=== PATIENT | female | born 1965 | race Caucasian/White ===

== ENCOUNTER 2020-08-25 02:14 | Emergency (ER) | payer OTHER, MEDICAID ==
[~2020-08-25] VITALS: Ht 167.6 cm; Wt 66.7 kg
--- NOTE | 2020-08-25 02:28 | NUR ---
Patient to ER bed 6 to gown for evaluation. Side rails up. Report given to DANA Beckford.
[2020-08-25 02:31] VITALS: BP_SYST 126
[2020-08-25] MEDS ORDERED: PROP10TA10 PO (02:41)
[2020-08-25] MEDS ORDERED: SYN50 PO (02:41)
[2020-08-25] MEDS ORDERED: GABA-529 PO (02:41)
--- NOTE | 2020-08-25 02:42 | NUR ---
Medication reconciliation completed with information provided by patient. Any prior medication reconciliation on file was reviewed and corrected.
--- NOTE | 2020-08-25 02:42 | NUR ---
Dr. Candelario bedside for pt eval
[2020-08-25] MEDS ORDERED: NACL 0.9% 1,000 ML IV ONE ×2 (02:45→04:30)
[2020-08-25] MEDS ORDERED: ONDANSETRON HCL 4 MG/2 ML VIAL IVP ONE (02:45)
[2020-08-25] MEDS ORDERED: KETOROLAC TROMETHAMINE 30 MG VIAL IVP ONE (02:45)
[2020-08-25 02:46] LABS: BILIRUBIN,URINE NEGATIVE (NEGATIVE); BLOOD, URINE 3+ (NEGATIVE); CLARITY/URINE CLEAR (CLEAR); COLOR,URINE YELLOW (YELLOW); GLUCOSE,URINE NEGATIVE (NEGATIVE); KETONES,URINE NEGATIVE (NEGATIVE); LEUKOCYTE ESTERASE ,URINE TRACE (NEGATIVE); NITRITE, URINE POSITIVE (NEGATIVE); PROTEIN URINE 2+ (NEGATIVE)
--- NOTE | 2020-08-25 02:51 | NUR ---
Pt BIB family to ED C/O Left flank pain x 2 weeks, no significant hx otherwise, no other complaints noted VSS no s/s of acute distress Resting on gurney rails up
[2020-08-25 02:52] LABS: BACTERIA,URINE MODERATE /HPF (None Seen)
--- NOTE | 2020-08-25 03:08 | NUR ---
Pt taken to Radiology in stable condition
[2020-08-25 03:09] LABS: BASOPHILS # (AUTO) 0.1 K/uL (0.0-0.2); BASOPHILS % (AUTO) 1.4 % (0.0-2.0); EOSINOPHILS # (AUTO) 0.1 K/uL (0.0-0.4); EOSINOPHILS % (AUTO) 1.3 % (0.0-4.0); HEMATOCRIT 39.9 % (36-48); LYMPHOCYTES # (AUTO) 1.6 K/uL (1.0-5.5); LYMPHOCYTES % (AUTO) 27.2 % (20.5-51.5); MEAN CORPUSCULAR HEMOGLOBIN 29 pg (27-31); MEAN CORPUSCULAR HGB CONC 32 % (32-36); MEAN CORPUSCULAR VOLUME 90 fL (79.0-98.0); MONOCYTES # (AUTO) 0.5 K/uL (0.0-1.0); MONOCYTES % (AUTO) 8.4 % (1.7-9.3); NEUTROPHILS # (AUTO) 3.6 K/uL (1.8-7.7); NEUTROPHILS % (AUTO) 61.7 % (40.0-70.0); PLATELET COUNT (AUTO) 201 K/uL (130-430); RED BLOOD CELL COUNT(AUTO) 4.44 MIL/uL (4.2-6.2); RED CELL DISTRIBUTION WIDTH 17.7 % (9.0-15.0); WHITE BLOOD COUNT (AUTO) 5.8 K/uL (4.8-10.8)
[2020-08-25 03:18] LABS: CALCIUM 8.4 mg/dL (8.4-11.0); CREATININE 0.72 mg/dL (0.55-1.30)
--- NOTE | 2020-08-25 03:22 | NUR ---
Pt back from Radiology, well tolerated
[2020-08-25 03:24] LABS: ALBUMIN 3.6 g/dL (3.4-4.8); TOTAL BILIRUBIN 0.3 mg/dL (0.0-1.0)
[2020-08-25] MEDS ORDERED: cefTRIAXone 1 GM in D5W 50 ML IV ONE (03:30)
--- NOTE | 2020-08-25 03:45 | NUR ---
Dr. Candelario bedside for pt update
[2020-08-25] MEDS ORDERED: cefTRIAXone 1 GM IVPB PREMIX 50 ML IV ONE (03:54)
--- NOTE | 2020-08-25 04:05 | NUR ---
IV Meds well tolerated
--- NOTE | 2020-08-25 04:45 | NUR ---
Pt states " feeling a little better "
[2020-08-25] MEDS ORDERED: Cefdinir PO (04:51)
[2020-08-25] MEDS ORDERED: HYDR-3917 PO (04:51)
--- NOTE | 2020-08-25 05:47 | NUR ---
VSS, IVF therapy well tolerated
[2020-08-25 06:30] VITALS: BP_SYST 126
--- NOTE | 2020-08-25 06:30 | NUR ---
Patient given written and verbal discharge instructions and verbalizes understanding. ER MD discussed with patient the results and treatment provided. Patient in stable condition. ID arm band removed. IV catheter removed intact and dressing applied, no active bleeding. Rx of [place] given. Patient educated on pain management and to follow up with PMD. Pain Scale 0/10 Opportunity for questions provided and answered. Medication side effect fact sheet provided.
== END 2020-08-25 06:30 | disposition home or self-care (01) ==
LOC: SED 02:14
DX: N12 Tubulo-interstitial nephritis, not specified as acute or chronic (principal); N39.0 Urinary tract infection, site not specified; Z79.899 Other long term (current) drug therapy
CPT/HCPCS: 36415; 74176; 76376; 80053; 81000; 83605; 85025; 87040; 87086; 96361; 96365; 96375; 99284; J0696; J1885; J2405; J7030

== ENCOUNTER 2022-01-06 22:00 | Emergency (ER) | payer OTHER, MEDICAID ==
[~2022-01-06] VITALS: Ht 167.6 cm; Wt 59.0 kg
[~2022-01-06 22:00] MED LIST: Cefdinir PO; GABA-529 PO; HYDR-3917 PO; PROP10TA10 PO; SYN50 PO
[2022-01-06 22:18] VITALS: BP_SYST 115
[2022-01-06] MEDS ORDERED: PROCHLORPERAZINE EDISYLATE 10 MG/2 ML VIAL IVP ONE (22:30)
[2022-01-06] MEDS ORDERED: NACL 0.9% 1,000 ML IV ONE (22:30)
[2022-01-06] MEDS ORDERED: MORPHINE 4 MG INJ. 4 MG/ML VIAL IVP ONE (22:30)
[2022-01-06 22:49] LABS: BASOPHILS # (AUTO) 0.1 K/uL (0.0-0.2); BASOPHILS % (AUTO) 2.7 % (0.0-2.0); EOSINOPHILS % (AUTO) 0.9 % (0.0-4.0); HEMATOCRIT 32.3 % (36-48); LYMPHOCYTES # (AUTO) 2.5 K/uL (1.0-5.5); MEAN CORPUSCULAR VOLUME 87 fL (79.0-98.0); MONOCYTES # (AUTO) 0.6 K/uL (0.0-1.0); NEUTROPHILS # (AUTO) 1.5 K/uL (1.8-7.7); NEUTROPHILS % (AUTO) 31.4 % (40.0-70.0); PLATELET COUNT (AUTO) 329 K/uL (130-430); RED BLOOD CELL COUNT(AUTO) 3.71 MIL/uL (4.2-6.2); RED CELL DISTRIBUTION WIDTH 14.6 % (9.0-15.0); WHITE BLOOD COUNT (AUTO) 4.9 K/uL (4.8-10.8)
--- NOTE | 2022-01-06 22:50 | NUR ---
PT IN BED, AA&OX4. AFEBRILE. C/O 10/ ABD PAIN. PER PT, SHE JUST HAD AN EMERGENCY ABDOMINAL SURGERY 4 WKS AGO IN [place]. AMBULATORY W/ STEADY GAIT. SAFE & HAZARD FREE ENVIRONMENT PROVIDED. PT ALSO STATED THAT SHE BROKE HER R 3RD,4TH & 5TH DIGIT TOES. NO SWELLING NOTED.
--- NOTE | 2022-01-06 22:55 | NUR ---
# 20 gauge angiocath placed to RFA. Use of asceptic technique. Opsite placed over site. Blood return noted. Blood for lab drawn from site. Flushed with 10 cc of normal saline. No evidence of infiltration noted. Patient tolerated well.
[2022-01-06 23:12] LABS: CALCIUM 8.4 mg/dL (8.4-11.0); CREATININE 0.68 mg/dL (0.55-1.30)
[2022-01-06 23:17] LABS: ALBUMIN 3.2 g/dL (3.4-4.8); TOTAL BILIRUBIN 0.3 mg/dL (0.0-1.0)
--- NOTE | 2022-01-07 00:20 | NUR ---
ER Dr.D' BURNS at bedside examining patient.
--- NOTE | 2022-01-07 00:40 | NUR ---
PT SIGNED CONSENT FOR CT OF ABDOMEN W/ CONTRAST.
--- NOTE | 2022-01-07 02:42 | NUR ---
COVID-19 ANTIGEN TEST TAKEN AND SENT TO LAB AT 02:40 AM.
--- NOTE | 2022-01-07 03:22 | NUR ---
REPORT GIVEN TO ERIC BEE MGR
[2022-01-07 04:21] VITALS: BP_SYST 110
[2022-01-07] MEDS ORDERED: ONDA-8 TL (04:26)
[2022-01-07] MEDS ORDERED: TRAM50TA PO (04:26)
--- NOTE | 2022-01-07 06:01 | NUR ---
Patient given written and verbal discharge instructions and verbalizes understanding. ER MD discussed with patient the results and treatment provided. Patient in stable condition. ID arm band removed. IV catheter removed intact and dressing applied, no active bleeding. Rx of ZOFRAN & TRAMADOL given. Patient educated on pain management and to follow up with PMD. Pain Scale 0/10. Opportunity for questions provided and answered. Medication side effect fact sheet provided.
== END 2022-01-07 06:00 | disposition home or self-care (01) ==
LOC: SED 22:00
DX: R10.84 Generalized abdominal pain (principal); K56.7 Ileus, unspecified; K85.90 Acute pancreatitis without necrosis or infection, unspecified; R11.0 Nausea; Z79.899 Other long term (current) drug therapy; Z20.822 Contact with and (suspected) exposure to COVID-19
CPT/HCPCS: 99284; 96374; 96361; 96375; 87426; 80053; 83690; 85025; 36415; 74177; 73620; 76376; J0780; J2270; J7030; Q9967

== ENCOUNTER 2022-04-09 01:29 | Inpatient (IN) | payer OTHER, MEDICAID ==
[~2022-04-09] VITALS: Ht 165.1 cm; Wt 56.7 kg
[~2022-04-09 01:29] MED LIST changes: +ONDA-8 TL; +TRAM50TA PO
[2022-04-09 01:47] VITALS: BP_SYST 171
[2022-04-09] MEDS ORDERED: NACL 0.9% 1,000 ML IV ONE (02:00)
[2022-04-09] MEDS ORDERED: MORPHINE 4 MG INJ. 4 MG/ML VIAL IVP ONE (02:00)
[2022-04-09] MEDS ORDERED: ONDANSETRON HCL 4 MG/2 ML VIAL IVP ONE (02:00)
[2022-04-09 02:24] LABS: BASOPHILS # (AUTO) 0.1 K/uL (0.0-0.2); BASOPHILS % (AUTO) 0.9 % (0.0-2.0); EOSINOPHILS # (AUTO) 0.1 K/uL (0.0-0.4); EOSINOPHILS % (AUTO) 0.7 % (0.0-4.0); HEMATOCRIT 39.3 % (36-48); HEMOGLOBIN 12.8 g/dL (12.0-16.0); LYMPHOCYTES # (AUTO) 1.4 K/uL (1.0-5.5); LYMPHOCYTES % (AUTO) 20.2 % (20.5-51.5); MEAN CORPUSCULAR HEMOGLOBIN 27 pg (27-31); MEAN CORPUSCULAR HGB CONC 33 % (32-36); MEAN CORPUSCULAR VOLUME 84 fL (79.0-98.0); MONOCYTES # (AUTO) 0.7 K/uL (0.0-1.0); MONOCYTES % (AUTO) 9.9 % (1.7-9.3); NEUTROPHILS # (AUTO) 4.9 K/uL (1.8-7.7); NEUTROPHILS % (AUTO) 68.3 % (40.0-70.0); PLATELET COUNT (AUTO) 288 K/uL (130-430); RED BLOOD CELL COUNT(AUTO) 4.68 MIL/uL (4.2-6.2); WHITE BLOOD COUNT (AUTO) 7.1 K/uL (4.8-10.8)
[2022-04-09 02:37] LABS: CALCIUM 9.5 mg/dL (8.4-11.0); CREATININE 0.72 mg/dL (0.55-1.30)
[2022-04-09 02:46] LABS: ALBUMIN 3.5 g/dL (3.4-4.8); TOTAL BILIRUBIN 0.4 mg/dL (0.0-1.0)
[2022-04-09] MEDS ORDERED: D5/0.45 NS 1,000 ML IV ONE (08:00)
[2022-04-09] MEDS ORDERED: MORPHINE 2 MG/ML INJ. SYRINGE IVP PRN (09:00)
[2022-04-09] MEDS ORDERED: ONDANSETRON HCL 4 MG/2 ML VIAL IM PRN (09:00)
[2022-04-09] MEDS ORDERED: ONDANSETRON HCL 4 MG/2 ML VIAL IVP PRN ×2 (12:00→16:00)
[2022-04-09] MEDS ORDERED: LORazepam 2 MG/ML VIAL IVP PRN (12:00)
[2022-04-09 12:21] LABS: BILIRUBIN,URINE NEGATIVE (NEGATIVE); BLOOD, URINE NEGATIVE (NEGATIVE); CLARITY/URINE CLEAR (CLEAR); COLOR,URINE YELLOW (YELLOW); GLUCOSE,URINE NEGATIVE (NEGATIVE); KETONES,URINE NEGATIVE (NEGATIVE); LEUKOCYTE ESTERASE ,URINE NEGATIVE (NEGATIVE); NITRITE, URINE NEGATIVE (NEGATIVE); PROTEIN URINE NEGATIVE (NEGATIVE); UROBILINOGEN,URINE 0.2 (0.2-1.0)
[2022-04-09] MEDS: MORPHINE 2 MG/ML INJ. SYRINGE IVP PRN ×2 (12:35→20:45)
[2022-04-09] MEDS ORDERED: DESFLURANE 15 MIN GAS INH ONE (15:00)
[2022-04-09] MEDS ORDERED: ROCURONIUM BROMIDE 10 MG/ML (ZEMURON) IV ONE (15:00)
[2022-04-09] MEDS ORDERED: cefTRIAXone 2 GM VIAL IV ONE (15:00)
[2022-04-09] MEDS ORDERED: fentaNYL CITRATE 250 MCG/5 ML AMP IV ONE (15:00)
[2022-04-09] MEDS ORDERED: LR 1,000 ML IV.SOLN IV ONE (15:00)
[2022-04-09] MEDS ORDERED: NS IRRIG SOLN 1000 ML IR ONE (15:00)
[2022-04-09] MEDS ORDERED: LIDOCAINE 1% 10 MG/ML, 20 ML MDV INJ ONE (15:00)
[2022-04-09] MEDS ORDERED: PROPOFOL 200MG/ 20ML VIAL (DIPRIVAN) IV ONE (15:00)
[2022-04-09] MEDS ORDERED: cefOXitin SODIUM 2 GM/VIAL (MEFOXIN) IV ONE (15:00)
[2022-04-09] MEDS ORDERED: BUPIVACAINE LIPOSOME/PF 266 MG/20 ML VIAL INFIL ONE (15:49)
[2022-04-09] MEDS ORDERED: METOCLOPRAMIDE HCL 10 MG/2 ML VIAL IVP PRN (16:00)
[2022-04-09] MEDS ORDERED: fentaNYL CITRATE/PF 100 MCG/2 ML AMP IVP PRN ×2 (16:00)
[2022-04-09] MEDS ORDERED: PANTOPRAZOLE SODIUM 40 MG TAB PO ONE (16:30)
[2022-04-09] MEDS ORDERED: MORPHINE 4 MG INJ. 4 MG/ML VIAL IVP PRN (16:30)
[2022-04-09] MEDS ORDERED: fentaNYL CITRATE/PF 100 MCG/2 ML AMP ONE (17:09)
[2022-04-09] MEDS ORDERED: MORPHINE 4 MG INJ. 4 MG/ML VIAL ONE (17:28)
[2022-04-09] MEDS ORDERED: ACETAMINOPHEN I.V. 1000 MG 100 ML IV ONE ×2 (17:59→18:15)
[2022-04-09] MEDS ORDERED: MIDAZOLAM HCL 2 MG/2 ML VIAL (VERSED) ONE (17:59)
[2022-04-09] MEDS ORDERED: MIDAZOLAM HCL 5 MG/5 ML VIAL IVP ONE (18:15)
[2022-04-09] MEDS ORDERED: HYDROmorphone 1 MG/ML INJ. CARTRIDGE ONE (18:23)
[2022-04-09 22:30] VITALS: BP_SYST 123
[2022-04-10 00:20] VITALS: BP_SYST 125
[2022-04-10] MEDS: KCL 20 mEq in D5/0.45NS 1000mL 1,000 ML IV SCH ×4 (00:39→23:40)
[2022-04-10] MEDS: MORPHINE 2 MG/ML INJ. SYRINGE IVP PRN ×2 (00:40→08:29)
[2022-04-10 06:59] LABS: BASOPHILS % (AUTO) 0.3 % (0.0-2.0); CALCIUM 8.3 mg/dL (8.4-11.0); CREATININE 0.65 mg/dL (0.55-1.30); EOSINOPHILS % (AUTO) 0.5 % (0.0-4.0); HEMATOCRIT 39.6 % (36-48); LYMPHOCYTES # (AUTO) 0.8 K/uL (1.0-5.5); LYMPHOCYTES % (AUTO) 10.8 % (20.5-51.5); MEAN CORPUSCULAR HEMOGLOBIN 28 pg (27-31); MEAN CORPUSCULAR HGB CONC 33 % (32-36); MEAN CORPUSCULAR VOLUME 85 fL (79.0-98.0); MONOCYTES # (AUTO) 0.5 K/uL (0.0-1.0); MONOCYTES % (AUTO) 6.7 % (1.7-9.3); NEUTROPHILS # (AUTO) 6.4 K/uL (1.8-7.7); NEUTROPHILS % (AUTO) 81.7 % (40.0-70.0); PLATELET COUNT (AUTO) 241 K/uL (130-430); RED BLOOD CELL COUNT(AUTO) 4.68 MIL/uL (4.2-6.2); RED CELL DISTRIBUTION WIDTH 15.8 % (9.0-15.0); WHITE BLOOD COUNT (AUTO) 7.8 K/uL (4.8-10.8)
[2022-04-10] MEDS ORDERED: HYDROcodone/ACETAMIN 7.5-325 MG TAB PO PRN (09:00)
[2022-04-10 11:23] VITALS: BP_SYST 141
[2022-04-10] MEDS ORDERED: NALOXONE HCL 0.4 MG/ML AMP (NARCAN) IVP PRN (11:30)
[2022-04-10] MEDS ORDERED: ACETAMINOPHEN 325 MG TABLET PO PRN (11:30)
[2022-04-10] MEDS: HYDROcodone/ACETAMIN 5-325 MG TAB (NORCO/ VICODIN) PO PRN ×2 (14:04→20:53)
[2022-04-10 15:19] VITALS: BP_SYST 144
[2022-04-10 20:00] VITALS: BP_SYST 123
[2022-04-11] VITALS: BP_SYST 106
[2022-04-11] MEDS: HYDROcodone/ACETAMIN 5-325 MG TAB (NORCO/ VICODIN) PO PRN (05:17)
[2022-04-11 06:47] LABS: BASOPHILS % (AUTO) 0.6 % (0.0-2.0); EOSINOPHILS # (AUTO) 0.1 K/uL (0.0-0.4); EOSINOPHILS % (AUTO) 1.7 % (0.0-4.0); HEMATOCRIT 38.7 % (36-48); HEMOGLOBIN 12.9 g/dL (12.0-16.0); LYMPHOCYTES # (AUTO) 1.1 K/uL (1.0-5.5); LYMPHOCYTES % (AUTO) 27.7 % (20.5-51.5); MEAN CORPUSCULAR HEMOGLOBIN 28 pg (27-31); MEAN CORPUSCULAR HGB CONC 33 % (32-36); MEAN CORPUSCULAR VOLUME 85 fL (79.0-98.0); MONOCYTES # (AUTO) 0.5 K/uL (0.0-1.0); MONOCYTES % (AUTO) 11.8 % (1.7-9.3); NEUTROPHILS # (AUTO) 2.2 K/uL (1.8-7.7); NEUTROPHILS % (AUTO) 58.2 % (40.0-70.0); PLATELET COUNT (AUTO) 230 K/uL (130-430); RED BLOOD CELL COUNT(AUTO) 4.58 MIL/uL (4.2-6.2); RED CELL DISTRIBUTION WIDTH 15.8 % (9.0-15.0); WHITE BLOOD COUNT (AUTO) 3.9 K/uL (4.8-10.8)
[2022-04-11 07:53] LABS: CALCIUM 8.7 mg/dL (8.4-11.0); CREATININE 0.58 mg/dL (0.55-1.30)
[2022-04-11 08:00] VITALS: BP_SYST 102
[2022-04-11] MEDS: KCL 20 mEq in D5/0.45NS 1000mL 1,000 ML IV SCH ×2 (08:30→15:07)
[2022-04-11] MEDS ORDERED: HYDR-3927 PO (11:01)
[2022-04-11] MEDS: MORPHINE 2 MG/ML INJ. SYRINGE IVP PRN ×2 (12:38→20:56)
[2022-04-11] MEDS: ONDANSETRON HCL 4 MG/2 ML VIAL IM PRN ×2 (12:38→20:55)
[2022-04-11 12:40] VITALS: BP_SYST 104
[2022-04-11 16:15] VITALS: BP_SYST 102
[2022-04-11 20:00] VITALS: BP_SYST 102
[2022-04-12] MEDS: KCL 20 mEq in D5/0.45NS 1000mL 1,000 ML IV SCH ×3 (00:48→23:58)
[2022-04-12 00:50] VITALS: BP_SYST 104
[2022-04-12 08:01] VITALS: BP_SYST 110
[2022-04-12 09:49] LABS: CALCIUM 8.6 mg/dL (8.4-11.0); CREATININE 0.47 mg/dL (0.55-1.30)
[2022-04-12] MEDS: OXYCODONE/ACETAMINOPHEN 5-325 TABLET PO PRN ×2 (10:13→23:58)
[2022-04-12 10:26] LABS: BASOPHILS % (AUTO) 0.6 % (0.0-2.0); EOSINOPHILS # (AUTO) 0.1 K/uL (0.0-0.4); EOSINOPHILS % (AUTO) 3.1 % (0.0-4.0); HEMOGLOBIN 12.3 g/dL (12.0-16.0); LYMPHOCYTES # (AUTO) 1.1 K/uL (1.0-5.5); LYMPHOCYTES % (AUTO) 29.1 % (20.5-51.5); MEAN CORPUSCULAR HEMOGLOBIN 28 pg (27-31); MEAN CORPUSCULAR HGB CONC 32 % (32-36); MEAN CORPUSCULAR VOLUME 85 fL (79.0-98.0); MONOCYTES # (AUTO) 0.4 K/uL (0.0-1.0); MONOCYTES % (AUTO) 9.7 % (1.7-9.3); NEUTROPHILS # (AUTO) 2.1 K/uL (1.8-7.7); NEUTROPHILS % (AUTO) 57.5 % (40.0-70.0); PLATELET COUNT (AUTO) 249 K/uL (130-430); RED BLOOD CELL COUNT(AUTO) 4.46 MIL/uL (4.2-6.2); RED CELL DISTRIBUTION WIDTH 15.9 % (9.0-15.0); WHITE BLOOD COUNT (AUTO) 3.7 K/uL (4.8-10.8)
[2022-04-12 12:30] VITALS: BP_SYST 105
[2022-04-12 15:54] VITALS: BP_SYST 126
[2022-04-12] MEDS: HYDROcodone/ACETAMIN 5-325 MG TAB (NORCO/ VICODIN) PO PRN ×2 (16:13→21:14)
[2022-04-12 20:33] VITALS: BP_SYST 106
[2022-04-12 23:30] VITALS: BP_SYST 121
[2022-04-13] MEDS: HYDROcodone/ACETAMIN 5-325 MG TAB (NORCO/ VICODIN) PO PRN ×2 (08:33→17:59)
[2022-04-13] MEDS ORDERED: OMEPRAZOLE Non-Formulary 20 MG CAPSULE.DR PO SCH (10:00)
[2022-04-13] MEDS ORDERED: PANTOPRAZOLE SODIUM 40 MG TAB PO ONE (10:15)
[2022-04-13 12:30] VITALS: BP_SYST 109
[2022-04-13] MEDS: KCL 20 mEq in D5/0.45NS 1000mL 1,000 ML IV SCH ×2 (13:00→23:00)
[2022-04-13] MEDS: SIMETHICONE 80 MG TAB.CHEW PO SCH ×3 (13:00→21:27)
[2022-04-13 16:01] VITALS: BP_SYST 104
[2022-04-13 20:00] VITALS: BP_SYST 106
[2022-04-14 03:45] VITALS: BP_SYST 122
[2022-04-14] MEDS: KCL 20 mEq in D5/0.45NS 1000mL 1,000 ML IV SCH ×2 (04:08→22:42)
[2022-04-14] MEDS: OXYCODONE/ACETAMINOPHEN 5-325 TABLET PO PRN ×3 (04:09→22:41)
[2022-04-14 07:21] LABS: EOSINOPHILS # (AUTO) 0.2 K/uL (0.0-0.4); EOSINOPHILS % (AUTO) 5.2 % (0.0-4.0); HEMATOCRIT 35.3 % (36-48); HEMOGLOBIN 11.6 g/dL (12.0-16.0); LYMPHOCYTES # (AUTO) 1.2 K/uL (1.0-5.5); LYMPHOCYTES % (AUTO) 34.9 % (20.5-51.5); MEAN CORPUSCULAR HEMOGLOBIN 28 pg (27-31); MEAN CORPUSCULAR HGB CONC 33 % (32-36); MEAN CORPUSCULAR VOLUME 84 fL (79.0-98.0); MONOCYTES # (AUTO) 0.3 K/uL (0.0-1.0); MONOCYTES % (AUTO) 8.3 % (1.7-9.3); NEUTROPHILS # (AUTO) 1.7 K/uL (1.8-7.7); NEUTROPHILS % (AUTO) 50.6 % (40.0-70.0); PLATELET COUNT (AUTO) 291 K/uL (130-430); RED CELL DISTRIBUTION WIDTH 15.4 % (9.0-15.0); WHITE BLOOD COUNT (AUTO) 3.3 K/uL (4.8-10.8)
[2022-04-14 08:00] VITALS: BP_SYST 91
[2022-04-14 08:34] LABS: ALBUMIN 2.7 g/dL (3.4-4.8); CALCIUM 8.8 mg/dL (8.4-11.0); CREATININE 0.66 mg/dL (0.55-1.30); TOTAL BILIRUBIN 0.2 mg/dL (0.0-1.0)
[2022-04-14] MEDS: SIMETHICONE 80 MG TAB.CHEW PO SCH ×4 (09:57→21:17)
[2022-04-14] MEDS: PANTOPRAZOLE SODIUM 40 MG TAB PO SCH (09:57)
[2022-04-14 12:00] VITALS: BP_SYST 103
[2022-04-14 16:00] VITALS: BP_SYST 94
[2022-04-14 20:00] VITALS: BP_SYST 95
[2022-04-15 02:28] VITALS: BP_SYST 108
[2022-04-15] MEDS: KCL 20 mEq in D5/0.45NS 1000mL 1,000 ML IV SCH ×2 (05:43→14:14)
[2022-04-15 07:02] LABS: BASOPHILS % (AUTO) 1.2 % (0.0-2.0); CALCIUM 8.3 mg/dL (8.4-11.0); CREATININE 0.41 mg/dL (0.55-1.30); EOSINOPHILS # (AUTO) 0.2 K/uL (0.0-0.4); EOSINOPHILS % (AUTO) 5.3 % (0.0-4.0); HEMATOCRIT 34.6 % (36-48); HEMOGLOBIN 11.5 g/dL (12.0-16.0); LYMPHOCYTES # (AUTO) 1.4 K/uL (1.0-5.5); LYMPHOCYTES % (AUTO) 40.1 % (20.5-51.5); MEAN CORPUSCULAR HEMOGLOBIN 28 pg (27-31); MEAN CORPUSCULAR HGB CONC 33 % (32-36); MEAN CORPUSCULAR VOLUME 84 fL (79.0-98.0); MONOCYTES # (AUTO) 0.3 K/uL (0.0-1.0); MONOCYTES % (AUTO) 9.5 % (1.7-9.3); NEUTROPHILS # (AUTO) 1.5 K/uL (1.8-7.7); NEUTROPHILS % (AUTO) 43.9 % (40.0-70.0); PLATELET COUNT (AUTO) 313 K/uL (130-430); RED BLOOD CELL COUNT(AUTO) 4.13 MIL/uL (4.2-6.2); RED CELL DISTRIBUTION WIDTH 15.5 % (9.0-15.0); WHITE BLOOD COUNT (AUTO) 3.4 K/uL (4.8-10.8)
[2022-04-15 08:11] VITALS: BP_SYST 103
[2022-04-15] MEDS: SIMETHICONE 80 MG TAB.CHEW PO SCH ×4 (09:00→21:38)
[2022-04-15] MEDS: PANTOPRAZOLE SODIUM 40 MG TAB PO SCH (09:00)
[2022-04-15] MEDS: OXYCODONE/ACETAMINOPHEN 5-325 TABLET PO PRN ×2 (09:10→17:26)
[2022-04-15 11:23] VITALS: BP_SYST 107
[2022-04-15 17:09] VITALS: BP_SYST 107
[2022-04-15 20:25] VITALS: BP_SYST 115
[2022-04-16] VITALS: BP_SYST 116
[2022-04-16] MEDS: KCL 20 mEq in D5/0.45NS 1000mL 1,000 ML IV SCH (01:00)
[2022-04-16] MEDS: OXYCODONE/ACETAMINOPHEN 5-325 TABLET PO PRN ×2 (01:15→07:38)
[2022-04-16 04:00] VITALS: BP_SYST 138
[2022-04-16 06:41] LABS: BASOPHILS # (AUTO) 0.1 K/uL (0.0-0.2); BASOPHILS % (AUTO) 1.2 % (0.0-2.0); EOSINOPHILS # (AUTO) 0.2 K/uL (0.0-0.4); EOSINOPHILS % (AUTO) 4.2 % (0.0-4.0); HEMATOCRIT 35.2 % (36-48); HEMOGLOBIN 11.9 g/dL (12.0-16.0); LYMPHOCYTES # (AUTO) 1.5 K/uL (1.0-5.5); LYMPHOCYTES % (AUTO) 37.1 % (20.5-51.5); MEAN CORPUSCULAR HEMOGLOBIN 28 pg (27-31); MEAN CORPUSCULAR HGB CONC 34 % (32-36); MEAN CORPUSCULAR VOLUME 84 fL (79.0-98.0); MONOCYTES # (AUTO) 0.3 K/uL (0.0-1.0); MONOCYTES % (AUTO) 7.5 % (1.7-9.3); PLATELET COUNT (AUTO) 318 K/uL (130-430); RED BLOOD CELL COUNT(AUTO) 4.21 MIL/uL (4.2-6.2); RED CELL DISTRIBUTION WIDTH 15.1 % (9.0-15.0); WHITE BLOOD COUNT (AUTO) 4.1 K/uL (4.8-10.8)
[2022-04-16 06:55] LABS: CALCIUM 8.9 mg/dL (8.4-11.0); CREATININE 0.58 mg/dL (0.55-1.30)
[2022-04-16 08:08] VITALS: BP_SYST 153
== END 2022-04-16 08:30 | disposition home or self-care (01) | DRG 356 ==
LOC: SED 01:29 → SMU 07:48
PROVIDERS: ADMIT Preventive Medicine Preventive Medicine/Occupational Environmental Medicine; ATTEND Preventive Medicine Preventive Medicine/Occupational Environmental Medicine
PROC: 0DQV0ZZ Repair Mesentery, Open Approach (ICD-10-PCS; principal; 2022-04-09 15:00)
DX: K46.0 Unspecified abdominal hernia with obstruction, without gangrene (principal); E43 Unspecified severe protein-calorie malnutrition; E03.9 Hypothyroidism, unspecified; Z53.20 Procedure and treatment not carried out because of patient's decision for unspecified reasons; D72.819 Decreased white blood cell count, unspecified; D64.9 Anemia, unspecified; R73.9 Hyperglycemia, unspecified; Z20.822 Contact with and (suspected) exposure to COVID-19; E88.09 Other disorders of plasma-protein metabolism, not elsewhere classified; E83.51 Hypocalcemia; Z98.84 Bariatric surgery status; Z90.710 Acquired absence of both cervix and uterus; Z68.20 Body mass index [BMI] 20.0-20.9, adult
CPT/HCPCS: 36415; 74018; 76376; 76705; 80048; 80053; 81003; 83690; 85025; 86886; 86900; 86901; 93005; 96361; 96374; 96375; 96376; 97116-GP; 97530-GP; 99285; C9290; J0131; J0694; J0696; J1170; J2001; J2270; J2405; J2704; J3010; J3465; J7120; Q9967

== ENCOUNTER 2023-02-12 14:13 | Emergency (ER) | payer MEDICAID, OTHER ==
[~2023-02-12] VITALS: Ht 167.6 cm; Wt 59.0 kg
[~2023-02-12 14:13] MED LIST changes: -Cefdinir PO; -GABA-529 PO; -HYDR-3917 PO; +HYDR-3927 PO; -ONDA-8 TL; -PROP10TA10 PO; -SYN50 PO
[2023-02-12 14:15] VITALS: BP_SYST 125; PULSE 70; RESP 18; TEMP 97.8; O2SAT 100
[2023-02-12 15:22] LABS: EOSINOPHILS % (AUTO) 0.8 % (0.0-4.0); HEMATOCRIT 34.1 % (36-48); HEMOGLOBIN 10.9 g/dL (12.0-16.0); LYMPHOCYTES % (AUTO) 21.5 % (20.5-51.5); MEAN CORPUSCULAR HEMOGLOBIN 26 pg (27-31); MEAN CORPUSCULAR HGB CONC 32 % (32-36); MEAN CORPUSCULAR VOLUME 81 fL (79.0-98.0); MONOCYTES # (AUTO) 0.3 K/uL (0.0-1.0); MONOCYTES % (AUTO) 6.3 % (1.7-9.3); NEUTROPHILS # (AUTO) 3.3 K/uL (1.8-7.7); NEUTROPHILS % (AUTO) 70.4 % (40.0-70.0); PLATELET COUNT (AUTO) 268 K/uL (130-430); RED BLOOD CELL COUNT(AUTO) 4.22 MIL/uL (4.2-6.2); RED CELL DISTRIBUTION WIDTH 16.2 % (9.0-15.0); WHITE BLOOD COUNT (AUTO) 4.6 K/uL (4.8-10.8)
[2023-02-12 15:36] LABS: CALCIUM 8.7 mg/dL (8.4-11.0); CREATININE 0.55 mg/dL (0.55-1.30); POTASSIUM 3.8 mmol/L (3.5-5.1)
[2023-02-12 15:41] LABS: ALBUMIN 3.3 g/dL (3.4-4.8); TOTAL BILIRUBIN 0.2 mg/dL (0.0-1.0); TOTAL PROTEIN, SERUM 6.7 g/dL (6.4-8.3)
== END 2023-02-12 19:11 | disposition home or self-care (01) ==
LOC: SED 14:13
DX: S20.212A Contusion of left front wall of thorax, initial encounter (principal); Z79.899 Other long term (current) drug therapy; Y04.2XXA Assault by strike against or bumped into by another person, initial encounter; Y93.89 Activity, other specified; Y92.89 Other specified places as the place of occurrence of the external cause; Y99.8 Other external cause status
CPT/HCPCS: 99284; 71250; 80053; 85025; 36415; 76376; 74176; Q9967

== ENCOUNTER 2023-03-28 17:24 | Emergency (ER) | payer OTHER ==
[2023-03-28] MEDS ORDERED: NACL 0.9% 1,000 ML IV ONE (18:15)
[2023-03-28] MEDS ORDERED: KETOROLAC TROMETHAMINE 30 MG VIAL IVP ONE (18:15)
== END 2023-03-28 18:35 | disposition left against medical advice (07) ==
LOC: SED 17:24
DX: R10.9 Unspecified abdominal pain (principal); Z53.21 Procedure and treatment not carried out due to patient leaving prior to being seen by health care provider
CPT/HCPCS: 99281